=== PATIENT | female | born 1975 | race Caucasian/White ===

== ENCOUNTER 2024-01-24 08:59 | Emergency (ER) | payer BC, SELFPAY ==
[2024-01-24 09:06] VITALS: BP 132/84
[2024-01-24] MEDS: NSS 1000 IV (09:35)
[2024-01-24] MEDS: TORADOL 15 MG IV (09:35)
[2024-01-24 10:09] LABS: Urine Albumin Negative (Neg - Trace); Urine Bilirubin Negative (Negative); Urine Character Clear (Clear); Urine Color Yellow; Urine Glucose Negative (Negative); Urine Ketone Negative (Negative); Urine Leukocyte Negative (Negative); Urine Nitrite Negative (Negative); Urine Occult Blood Negative (Negative); Urine Specific Gravity 1.005 (<1.030); Urine Urobilinogen Negative (Neg - 1+)
[2024-01-24 10:12] LABS: % Basophils 0.5 % (0-2); % Eosinophils 1.3 % (0-6); % Immature Granulocytes 0.4 % (0-0.5); % Lymphocytes 34.9 % (20.5-51.1); % Neutrophils 54.9 % (42.2-75.2); Absolute Eosinophils 0.1 10^3/uL (0-0.7); Absolute Lymphocytes 2.8 10^3/uL (1.2-3.4); Absolute Monocytes 0.6 10^3/uL (0.1-0.6); Absolute Neutrophils 4.3 10^3/uL (1.4-6.5); Hematocrit 39.8 % (37.0-47.0); Hemoglobin 13.4 g/dL (12.0-16.0); Mean Corp Hgb Conc. 33.7 g/dL (33.0-37.0); Mean Corpuscular Hgb 28.9 pg (27.0-31.0); Mean Corpuscular Volume 85.8 fL (81.0-99.0); Mean Platelet Volume 9.5 fL (7.4-10.4); Nucleated Red Blood Cells % 0 %; Platelet Count 298 10^3/uL (130-400); Red Blood Cell Count 4.64 10^6/uL (4.20-5.40); Red Cell Dist. Width 13.2 % (11.5-14.5); White Blood Cell Count 7.9 10^3/uL (4.8-10.8)
[2024-01-24 10:22] LABS: HCG, Serum Qualitative Screen Negative
[2024-01-24 10:23] LABS: ALT (SGPT) 16 U/L (0-35); AST (SGOT) 21 U/L (14-36); Albumin 4.6 g/dl (3.5-5.0); Alkaline Phosphatase 49 U/L (38-126); Blood Urea Nitrogen 9 mg/dl (7-17); Calcium 9.7 mg/dl (8.4-10.2); Carbon Dioxide 26 mmol/L (22-30); Chloride 102 mmol/L (98-107); Glucose 95 mg/dl (70-99); Sodium 138 mmol/L (135-145); Total Bilirubin 0.8 mg/dl (0.2-1.3); Total Protein 7.8 g/dl (6.3-8.2); eGFR > 60.00
--- NOTE | 2024-01-24 11:08 | ED.GENMED ---
History of Present Illness
General
Chief Complaint: Abdominal Pain
Source: patient
Exam Limitations: none
Time Seen by Provider: 01/24/24 09:10
Nursing documentation reviewed up to this point in time: agreed with
Travel History
Have you had any contact with someone who has COVID-19?: No
Do you have any symptoms of coronavirus? Fever > 100 degrees, chills, cough, shortness of breath, sore throat, loss of taste or smell, muscle aches, or headache?: No
History of Present Illness
History of Present Illness:
48-year-old female with a past medical history as documented notable for frequent episodes of diverticulitis and prior history of kidney stones who presents to the emergency room for evaluation of abdominal pain. Patient reports onset of symptoms a
few days ago and they have been constant since that time. She reports pain mainly in the left flank and left lower abdomen although she will occasionally get pains that radiate across the lower abdomen. She reports mainly a dull pain although
occasionally flank pain will become sharp for brief periods of time. No clear triggering or relieving factors noted. She has had associated diarrhea. Mild nausea but no vomiting. No vaginal bleeding. No dysuria, hematuria, change in urinary
frequency. She did have a low-grade fever last night. She says this feels similar to prior episodes of diverticulitis. She has a prior surgical history of cholecystectomy and .
Past History
Past History
ED Past Medical History: Hypothyroidism and Other (Diverticulitis, ovarian cyst)
ED Past Surgical History: Cholecystectomy, and Other (Hernia)
Social History
Tobacco: Former smoker
Alcohol: Occasional
Drug: None
Personal:
Living: with family
Employment: Employed
Family History
Family History: Other (Noncontributory)
Review of Systems
Review of Systems
All Other Systems: ROS reviewed and negative except as documented in HPI and ROS
Constitutional: Reports fever and chills; Denies fatigue
EENT: Denies sore throat or runny nose
Respiratory: Denies cough or trouble breathing
Cardiac: Denies chest pain or palpitations
ABD/GI: Reports abdominal pain, nausea and diarrhea; Denies vomiting, constipated or bloody stools
: Reports flank pain; Denies dysuria, frequency or bleeding
Musculoskeletal: Denies neck pain or back pain
Neurological: Denies headache, weakness or numbness
Phy Exam
Physical Exam
Physical Exam:
General: Awake, alert, oriented x3; no acute distress
Head: Normocephalic, atraumatic
Eyes: Conjunctiva normal, sclera anicteric
Throat: Airway intact, handling secretions
Neck: Trachea midline, supple without meningismus
Lungs: Clear to auscultation bilaterally, no wheezing, rales, rhonchi
Heart: Regular rate and rhythm, no murmurs, gallops, or rubs
Abd: Soft, non distended, tender palpation left lower quadrant with voluntary guarding
Back: Mild left CVA tenderness
Neuro: Cranial nerves grossly intact, speech fluid
Skin: no rash
Extremities: No edema in extremities, equal pulses in all extremities
Scores
Heart Failure Risk
Heart Failure Risk Score: Not Applicable
Heart Score for Chest Pain Patients
STEMI patient?: Not applicable
Withdrawal Assessment of Alcohol
Withdrawal Assessment Completed?: Not applicable
Course
Orders/Labs/Results
Orders:
Orders
01/24/24 09:12
CT Abd/pelvis W Iv Cont Urgent
Comment:
Reason For Exam: LLQ/flank pain
Ketorolac [Toradol] 15 mg IV NOW STA
Test Result ONCE
01/24/24 09:29
0.9% Sodium Chloride 1000 ml [Nss] 1,000 ml IV BOLUS
01/24/24 09:31
Complete Blood Count/With Diff Urgent
Comprehensive Metabolic Panel Urgent
HCG, Serum Qualitative Screen Urgent
Urinalysis Reflex To Culture Urgent
Date Specimen was Collected: 01/24/24
Time Specimen was Collected: 09:28
01/24/24 11:50
Pelvis & Transvaginal US [US Pelvis W Transvag Combined] Stat
Comment:
Reason For Exam: left flank/abd pain
01/24/24 09:31
01/24/24 09:31
Vital Signs
Initial and Last Documented VS:
Initial Vital Signs
Temp Pulse Resp BP Pulse Ox
36.9 C 75 18 132/84 100
01/24/24 09:06 01/24/24 09:06 01/24/24 09:06 01/24/24 09:06 01/24/24 09:06
Last Documented Vital Signs
Temp Pulse Resp BP Pulse Ox
36.9 C 62 19 118/73 98
01/24/24 09:06 01/24/24 11:45 01/24/24 11:45 01/24/24 11:45 01/24/24 11:45
MDM/Problems Addressed
Differential Diagnosis Includes:
Diverticulitis, nephrolithiasis, UTI/pyelonephritis, colitis, ovarian cyst
MDM/Problems Addressed:
48-year-old female presents for evaluation of abdominal/flank pain on the left side the past few days associated with loose stools and nausea. Low-grade fever last night. Similar to prior episodes of diverticulitis. Vital signs here are normal.
Physical exam as above. Plan to place an IV check labs including CBC and CMP, hCG. Will check a urinalysis. Will send for CT of the abdomen pelvis. Will treat pain and provide some fluids. Will monitor closely reassess after the above.
Initial labs reviewed: CBC and CMP unremarkable. Urinalysis no blood or signs of infection. hCG negative. Awaiting results of CT. Clinical reassessment patient feeling better after Toradol.
CT shows no signs consistent with diverticulitis. She does have what looks like a fibroid on CT. No other acute pathology noted. She was sent for pelvic ultrasound to follow-up on CT findings which confirmed fibroid uterus; no signs of ovarian
cyst or torsion. At this point no clear emergent pathology for symptoms however she does have a long history of diverticulitis and says symptoms feel similar. Possible she has early diverticulitis not yet shown on imaging or limited visualization
on CT�will cover with antibiotics. Will have her follow-up with GI and PCP as an outpatient. She feels comfortable with this plan. Spoke about return precautions all questions answered.
*Radiology
Radiology exam reviewed: radiology read reviewed
*Pulse Oximetry
Patient hypoxic: no
*Critical Care Note
Total Time (30-74mins, 75-104mins- exclusive of procedures): Not Applicable
Data Reviewed
Source: patient and records
ED Attending Note
-
Portions of this chart may have been created with voice recognition software.� Occasional wrong word or��sound alike� substitutions may have occurred due to the inherent limitations of voice recognition software.
Discharge Plan
Departure
Patient Disposition: Home (Routine Discharge)
Date of Disposition: 01/24/24
Time of Disposition: 15:28
Patient with high blood pressure during this ER visit?: No
Discharge Problem:
Fibroid, Abdominal pain
Instructions: Diverticulitis (DC), Uterine Fibroids (DC)
Prescriptions:
New
metronidazole 500 mg tablet
500 mg PO TID Qty: 21 0RF
ciprofloxacin HCl 500 mg tablet
500 mg PO BID Qty: 14 0RF
No Action
sulfamethoxazole-trimethoprim 800-160 mg tablet
1 tab PO [id number]
Patient Comments:
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
levothyroxine 88 mcg tablet
88 mcg PO DAILY
ibuprofen 400 mg Tablet
400 mg PO Q6H PRN (Reason: fever)
clindamycin HCl 300 mg capsule
300 mg PO TID Qty: 20 0RF
Referrals:
Giuseppe Wilkins DO [Family Provider] -
Deja Oglesby MD [Active] - Call in 1-3 days for appt
Activity Restrictions/Additional Instructions:
Thank you for visiting the Emergency Department at [facility].
1. Please schedule a follow up appointment as directed. Call first thing tomorrow morning to make an appointment.
2. If indicated, please take your medications as instructed and indicated on discharge paperwork.
3. If any of your symptoms do not improve, or persist, or become more severe within 6-12 hours, please return to the emergency department for further care.
4. Please return to the emergency department if you develop a headache, neck pain/stiffness, fever greater than 100.4F, chest pain, shortness of breath, persistent nausea, vomiting, slurred speech, difficulty walking, numbness/tingling, weakness,
signs of infection or any other symptoms that are worrisome to you.
Please call [phone] if you have any questions.
Interventions
Interventions:
*Risk Screen - Suicide Last Done: 01/24/24 09:09
*General Assessment Last Done: 01/24/24 09:09
*Neglect/Abuse Screening Last Done: 01/24/24 09:09
*ED COVID-19 Vaccine History Last Done: 01/24/24 12:14
OZ-Oqnvcy-Xljkhgwohb Assessment Last Done: 01/24/24 09:41
[2024-01-24 11:45] VITALS: BP 118/73
[2024-01-24] MEDS: CIPRO 500 MG PO (15:39)
[2024-01-24] MEDS: FLAGYL 500 MG PO (15:40)
== END 2024-01-24 15:48 | disposition home or self-care (01) ==
LOC: EMR 08:59
PROVIDERS: EMERGENCY PHYSICIAN Emergency Medicine; FAMILY PHYSICIAN Family Medicine
DX: R10.9 Unspecified abdominal pain (principal); E03.9 Hypothyroidism, unspecified; Z87.442 Personal history of urinary calculi; Z87.891 Personal history of nicotine dependence; Z90.49 Acquired absence of other specified parts of digestive tract
CPT/HCPCS: 99284; 96374; 96361; 74177; 76830; 76856; 80053; 81003; 84703; 85025; Q9967

== ENCOUNTER → 2024-11-14 12:22 | Outpatient (REF) | payer BC, SELFPAY | LOC: RAD 12:22 | PROVIDERS: ATTENDING PHYSICIAN Family Medicine; FAMILY PHYSICIAN Family Medicine | DX: M25.561 Pain in right knee (principal); M54.9 Dorsalgia, unspecified; R91.8 Other nonspecific abnormal finding of lung field | CPT/HCPCS: 72072; 73564 ==

== ENCOUNTER → 2024-12-23 07:27 | Outpatient (REF) | payer BC, SELFPAY | LOC: RAD 07:27 | PROVIDERS: ATTENDING PHYSICIAN Family Medicine | DX: R91.8 Other nonspecific abnormal finding of lung field (principal) | CPT/HCPCS: 71250 ==

== ENCOUNTER 2025-02-23 10:24 | Emergency (ER) | payer BC, SELFPAY ==
[2025-02-23 10:28] VITALS: BP 141/105
--- NOTE | 2025-02-23 11:26 | ED.GENMED ---
History of Present Illness
General
Chief Complaint: Flank Pain
Source: patient
Exam Limitations: none
Time Seen by Provider: 02/23/25 11:12
History of Present Illness
History of Present Illness:
49yoF with a history of hypothyroidism and recurrent diverticulitis presenting for evaluation of abdominal pain. Patient has been having discomfort in her lower abdomen over the past several days. She describes a stretching/pulling sensation in
the lower abdomen. Pain radiates to the left flank. She started spiking fevers 2 days ago with a Tmax of 101.5 last night. She has not taken any antipyretics prior to arrival. She has been using heating pad and eating a liquid diet without any
improvement. She denies any urinary symptoms, diarrhea, vomiting. Patient has a history of recurrent diverticulitis and was previously seen by a surgeon a few years ago who recommended resection if she has another bout of severe diverticulitis.
Previous abdominal surgeries include a cholecystectomy, umbilical hernia repair, and section.
Past History
Past History
ED Past Medical History: Hypothyroidism and Other (Diverticulitis, ovarian cyst)
ED Past Surgical History: Cholecystectomy, and Other (Hernia)
Social History
Tobacco: Former smoker
Alcohol: Occasional
Drug: None
Personal:
Living: with family
Employment: Employed
Family History
Family History: Other (Noncontributory)
Phy Exam
General Physical Exam
General Presentation: well appearing and no apparent distress
General age: appears stated age
General Skin: warm and dry
General Habitus: normal
General Mental: alert
ENT Exam
ENT Exam: normocephalic
Cardiovascular Exam
Cardiovascular Exam: regular rate/rhythm
Pulmonary Exam
Pulmonary Exam: lungs clear, no respiratory distress, no rales, no crackles and no rhonchi
Gastrointestinal Exam
Gastrointestinal Exam: soft, non distended and other (+Tenderness in LLQ and suprapubic region. Abdomen soft, non-distended. No rebound or guarding. +L CVA tenderness. )
Neurological Exam
Neurological Exam: alert
[place] Coma Scale
Eye Opening: Spontaneous
Verbal Response: Oriented
Motor Response: Obeys Commands
GCS Total Score: 15
Skin Exam
Skin Exam: normal color and warm/dry
Psychiatric Exam
Psychiatric Exam: normal mood/affect
Course
Orders/Labs/Results
Orders:
Orders
02/23/25 11:25
CT Abd/pelvis W Iv Cont Urgent
Comment:
Reason For Exam: Lower abd pain, L flank pain
0.9% Sodium Chloride 1000 ml [Nss] 1,000 ml IV BOLUS
Ketorolac [Toradol] 15 mg IV NOW STA
02/23/25 11:26
Test Result ONCE
02/23/25 11:43
Complete Blood Count/With Diff Urgent
Comprehensive Metabolic Panel Urgent
HCG, Serum Qualitative Screen Urgent
Lipase Urgent
02/23/25 11:45
Urinalysis Reflex To Culture Urgent
Date Specimen was Collected: 02/23/25
Time Specimen was Collected: 11:44
Abnormal Lab Results
02/23/25
11:43
WBC 11.4 H 10^3/uL
(4.8-10.8)
Absolute Neuts (auto) 7.8 H 10^3/uL
(1.4-6.5)
Absolute Monos (auto) 1.1 H 10^3/uL
(0.1-0.6)
Lymphocytes % 20.2 L %
(20.5-51.1)
Monocytes % 9.9 H %
(1.7-9.3)
Chloride 108 H mmol/L
(98-107)
Glucose 118 H mg/dl
(70-99)
02/23/25 11:43
02/23/25 11:43
Vital Signs
Initial and Last Documented VS:
Initial Vital Signs
Temp Pulse Resp BP Pulse Ox
99.4 F 91 16 141/105 100
02/23/25 10:28 02/23/25 10:28 02/23/25 10:28 02/23/25 10:28 02/23/25 10:28
Last Documented Vital Signs
Temp Pulse Resp BP Pulse Ox
99.4 F 84 18 129/75 98
02/23/25 10:28 02/23/25 14:00 02/23/25 14:00 02/23/25 14:00 02/23/25 14:00
MDM/Problems Addressed
Differential Diagnosis Includes:
49yoF here with lower abd pain x several days. Radiates to the L flank. Started with a fever 2 days ago. Tmax 101.5. Temp 99.4 on arrival and she has not taken any antipyretics today. Hx of recurrent diverticulitis. VSS. She is well-appearing in no
acute distress. No signs of peritonitis on abdominal exam. Differential diagnosis includes but is not limited to: Diverticulitis, colitis, epiploic appendagitis, UTI, pyelonephritis
Initial ED plan: Check abdominal labs, UA, and CT abdomen with IV contrast. IV Toradol and fluid bolus for symptoms.
*Critical Care Note
Total Time (30-74mins, 75-104mins- exclusive of procedures): Not Applicable
Update Note
Update Note:
Labs reveal a mild leukocytosis with a white count of 11.4. UA bland without signs of infection. CT shows acute uncomplicated diverticulitis. No evidence of perforation or abscess. No indication for hospitalization at this time. She was started
on a course of Augmentin and supportive care discussed. Advised follow-up with PCP. ED return precautions discussed including severe pain or if she does not improve in 3-4 days. Patient in agreement with plan and was discharged in stable
condition.
ED Attending Note
-
Portions of this chart may have been created with voice recognition software.� Occasional wrong word or��sound alike� substitutions may have occurred due to the inherent limitations of voice recognition software.
Discharge Plan
Departure
Patient Disposition: Home (Routine Discharge)
Date of Disposition: 02/23/25
Time of Disposition: 14:23
Patient with high blood pressure during this ER visit?: No
Discharge Problem:
Acute diverticulitis
Instructions: Diverticulitis - Discharge instructions
Prescriptions:
New
amoxicillin-pot clavulanate 875-125 mg tablet
1 tab PO BID Qty: 20 0RF
No Action
levothyroxine 88 mcg tablet
88 mcg PO DAILY
ibuprofen 400 mg Tablet
400 mg PO Q6H PRN (Reason: fever)
clindamycin HCl 300 mg capsule
300 mg PO TID Qty: 20 0RF
metronidazole 500 mg tablet
500 mg PO TID Qty: 21 0RF
ciprofloxacin HCl 500 mg tablet
500 mg PO BID Qty: 14 0RF
ergocalciferol (vitamin D2) [Vitamin D2] 1,250 mcg (50,000 unit) Capsule
1,250 mcg PO QWEEK
rosuvastatin 10 mg Tablet
10 mg PO DAILY
Referrals:
Giuseppe Wilkins DO [Family Provider] -
Activity Restrictions/Additional Instructions:
Take antibiotics as prescribed. Eat a clear liquid diet until pain improves.
Please follow-up with your family doctor and gastroenterology. Return to the ER with any new or worsening symptoms including severe pain, fevers, or if you do not improve in 3 to 4 days.
Interventions
Interventions:
*Risk Screen - Suicide Last Done: 02/23/25 10:28
*General Assessment Last Done: 02/23/25 11:31
*Neglect/Abuse Screening Last Done: 02/23/25 10:28
*ED- Fall Risk Assessment Last Done: 02/23/25 11:31
*ED COVID-19 Vaccine History Last Done: 02/23/25 11:31
*Nursing Disposition Last Done: 02/23/25 14:55
PC-Qkzxvb-Kiysnoafsc Assessment Last Done: 02/23/25 12:03
ED-Female Genitourinary Assessment Last Done: 02/23/25 12:03
Discharge Date and Time
Discharge Date/Time: 02/23/25 14:56
Print Language: [place]
[2025-02-23 11:30] VITALS: BMI 32.7
[2025-02-23] MEDS: TORADOL 15 MG IV (11:47)
[2025-02-23] MEDS: NSS 1000 IV (11:48)
[2025-02-23 11:52] LABS: Urine Albumin Negative (Neg - Trace); Urine Bilirubin Negative (Negative); Urine Character Clear (Clear); Urine Color Yellow; Urine Glucose Negative (Negative); Urine Ketone Negative (Negative); Urine Leukocyte Negative (Negative); Urine Nitrite Negative (Negative); Urine Occult Blood Negative (Negative); Urine Specific Gravity 1.005 (<1.030); Urine Urobilinogen Negative (Neg - 1+)
[2025-02-23 12:00] VITALS: BP 132/99
[2025-02-23 12:04] LABS: HCG, Serum Qualitative Screen Negative
[2025-02-23 12:06] LABS: % Basophils 0.3 % (0-2); % Eosinophils 1.1 % (0-6); % Immature Granulocytes 0.4 % (0-0.5); % Lymphocytes 20.2 % (20.5-51.1); % Monocytes 9.9 % (1.7-9.3); % Neutrophils 68.1 % (42.2-75.2); Absolute Eosinophils 0.1 10^3/uL (0-0.7); Absolute Lymphocytes 2.3 10^3/uL (1.2-3.4); Absolute Monocytes 1.1 10^3/uL (0.1-0.6); Absolute Neutrophils 7.8 10^3/uL (1.4-6.5); Hematocrit 38.4 % (37.0-47.0); Hemoglobin 13.2 g/dL (12.0-16.0); Mean Corp Hgb Conc. 34.4 g/dL (33.0-37.0); Mean Corpuscular Hgb 29.1 pg (27.0-31.0); Mean Corpuscular Volume 84.6 fL (81.0-99.0); Mean Platelet Volume 9.2 fL (7.4-10.4); Nucleated Red Blood Cells % 0 %; Platelet Count 247 10^3/uL (130-400); Red Blood Cell Count 4.54 10^6/uL (4.20-5.40); White Blood Cell Count 11.4 10^3/uL (4.8-10.8)
[2025-02-23 12:07] LABS: ALT (SGPT) 21 U/L (0-35); AST (SGOT) 28 U/L (14-36); Albumin 3.9 g/dl (3.5-5.0); Alkaline Phosphatase 47 U/L (38-126); Blood Urea Nitrogen 7 mg/dl (7-17); Calcium 9.5 mg/dl (8.4-10.2); Carbon Dioxide 23 mmol/L (22-30); Chloride 108 mmol/L (98-107); Estimated Creatinine Clearance > 125 ml/min; Glucose 118 mg/dl (70-99); Lipase 63 U/L (23-300); Potassium 4.3 mmol/L (3.5-5.1); Sodium 139 mmol/L (135-145); Total Bilirubin 0.9 mg/dl (0.2-1.3); Total Protein 6.8 g/dl (6.3-8.2); eGFR > 60.00
[2025-02-23 14:00] VITALS: BP 129/75
== END 2025-02-23 14:56 | disposition home or self-care (01) ==
LOC: EMR 10:24
PROVIDERS: Physician Assistant; EMERGENCY PHYSICIAN Emergency Medicine; FAMILY PHYSICIAN Family Medicine
DX: K57.32 Diverticulitis of large intestine without perforation or abscess without bleeding (principal); E03.9 Hypothyroidism, unspecified; Z87.891 Personal history of nicotine dependence; Z90.49 Acquired absence of other specified parts of digestive tract; Z88.5 Allergy status to narcotic agent; Z91.048 Other nonmedicinal substance allergy status
CPT/HCPCS: 99284; 96361; 96374; 74177; 80053; 81003; 83690; 84703; 85025; Q9967

== ENCOUNTER 2025-09-25 06:26 | Day surgery (SDC) | payer BC, SELFPAY | END 2025-09-25 09:43 | disposition home or self-care (01) | LOC: GI 06:26 | PROVIDERS: ATTENDING PHYSICIAN Internal Medicine | DX: Z12.11 Encounter for screening for malignant neoplasm of colon (principal); K57.30 Diverticulosis of large intestine without perforation or abscess without bleeding; K64.4 Residual hemorrhoidal skin tags; K63.89 Other specified diseases of intestine; K52.9 Noninfective gastroenteritis and colitis, unspecified; Z86.0101 Personal history of adenomatous and serrated colon polyps | CPT/HCPCS: 45380; 88305 ==